=== PATIENT | female | born 1990 | race Caucasian/White ===

== ENCOUNTER 2021-09-28 18:17 | Inpatient (IN) ==
[2021-09-28] MEDS ORDERED: LACTATED RINGER'S 1,000 ML IV PRN ×2 (18:56→22:27)
--- NOTE | 2021-09-28 18:59 | History & Physical Report ---
Date of Service September 28, 2021 Assessment & Plan (1) Spotting affecting in third trimester: Plan: 30 yo at 37.6 wks with post coitla ctxs, spotting VSS Afebrile Uterine ctxs, pt does not feel them all GBS negative FHR categ I Plan to monitor, observe, IVF, Labs, recheck her cervix All questions were answered. (2) Postcoital and contact bleeding: (3) Uterine contractions at greater than 20 weeks of gestation: History of Present Illness Primary Care Provider: Hawa Tucker MD 30 yo at 37.6 wks who had SI at 11: 30 am this morning and has 1 time small leaking at around 1 pm It stopped She then started to feel crampy and saw pink spotting since 3 pm No pain with cramps Does not think she has ctxs +FM Problems: 1: GDM A1 2. GBS+ 3> COVID on 03/2021 4. Depression Patient History Social History Smoking Status: Never smoker Hx Alcohol Use: No Hx Substance Use: No Preferred Language: Hebrew Communication Ability: Effective Clerk Secretary Required: No Beliefs That Will Affect Care: None marital status: Current Living Situation: Spouse Other Information That Helps Us Care for You: No Feels Safe at Home: Yes Safety Concerns: Feels Safe At This Time STAFFING DIRECTOR History No h/o STD Physical Exam Constitutional: WD/WN, vitals as above well developed and well nourished Smiling, NAD Genitourinary: normal external appearance Speculum/Bimanual Exam: normal appearance of the vagina (MUCUS+, no poolimg, no blood) OB Exam Abdomen: + vertex Manual OB Exam: + cervical dilation 3 cm and 4 cm, + cervical effacement 50% and + station high (ballotable) OB Exam Monitor Tracing: + external uterine monitor used and + category I Bed side US: Vertex, SEB 17.5 cm, placenta fundal posterior, normal No ferning on slide Results & Data ([facility]) Vital Signs (Past 12 Hours) Vital Signs Pulse BP Pulse Ox 09/28/21 18:36 75 119/79 09/28/21 18:33 65 96
[2021-09-28] MEDS ORDERED: PENICILLIN G POTASSIUM 6 MU in DEXTROSE 5% 250 ML IV ONE (19:14)
[2021-09-28] MEDS ORDERED: LACTATED RINGER'S 1,000 ML IV SCH (19:15)
[2021-09-28 19:21] LABS: Basophils # (auto) 0.02 K/uL (0-0.2); Basophils % (auto) 0.1 %; Eosinophils # (auto) 0.08 K/uL (0-0.50); Eosinophils % (auto) 0.5 %; Hematocrit (blood only) 37.4 % (34.1-44.9); Hemoglobin 13.3 g/dl (12.0-16.0); Immature Granulocytes # (auto) 0.15 K/uL (0.00-0.02); Lymphocytes % (auto) 17.8 %; Mean Corpuscular Hgb Conc 35.6 g/dL (32.0-36.0); Mean Corpuscular Volume 87.2 fL (80.0-100.0); Mean Platelet Volume 11.5 fL (9.4-12.3); Monocytes # (auto) 0.93 K/uL (0.24-0.82); Monocytes % (auto) 5.9 %; Neutrophils # (auto) 11.74 K/uL (1.4-6.5); Neutrophils % (auto) 74.7 %; Platelet Count 156 K/uL (130-400); RDW Coefficient of Variation 12.7 % (11.5-14.5); Red Blood Count 4.29 M/uL (3.93-5.22); White Blood Count 15.72 K/ul (4.8-10.8)
[2021-09-28] MEDS ORDERED: TERBUTALINE SULFATE 1 MG/ML VIAL SQ PRN (19:23)
[2021-09-28] MEDS: ACETAMINOPHEN 325 MG TAB PO PRN (21:54)
[2021-09-28] MEDS ORDERED: OXYTOCIN 30 UNITS/500 ML BAG IV PRN (22:27)
[2021-09-28] MEDS ORDERED: PENICILLIN G POTASSIUM 3 MU in DEXTROSE 5% 100 ML IV PRN (22:30)
--- NOTE | 2021-09-28 22:30 | Obstetrical Progress Note ---
Date of Service September 28, 2021 Subjective Patient started to have more pain and feels ctxs now No LOF/VB +FM's She is asking for epidural VE; 5-6 cm/ 70%/ -2, bulging bag Recevied 1st dose of PCN, IVF bolus for 2 lt LT Plan to admit, monitor, call anesthesia for epidural All questions were answered. Results & Data ([facility]) Vital Signs (Past 12 Hours) Vital Signs Temp Pulse Resp BP Pulse Ox 09/28/21 18:59 18 09/28/21 18:36 36.9 C 75 20 119/79 09/28/21 18:33 65 96
[2021-09-28] MEDS ORDERED: SODIUM CHLORIDE 0.9% INJ 10 ML VIAL ONE (22:34)
[2021-09-28] MEDS ORDERED: BUPIVACAINE 0.25% 30 ML VIAL ONE (22:34)
[2021-09-28] MEDS ORDERED: LIDOCAINE 2%/EPINEPHRINE 1:200,000 20 ML SDV ONE (22:34)
[2021-09-28] MEDS ORDERED: ePHEDrine sulfate 50 MG/ML AMP ONE (22:34)
[2021-09-28] MEDS ORDERED: fentaNYL citrate 100 MCG/2 ML VIAL ONE (22:34)
[2021-09-28] MEDS ORDERED: fentaNYL 2MCG/ML ROPIVACAINE 1.25MG/ML 100 ML BAG EPI ONE (22:35)
[2021-09-28] MEDS ORDERED: fentaNYL 2MCG/ML ROPIVACAINE 1.25MG/ML 100 ML BAG EPI PRN (22:58)
[2021-09-28] MEDS ORDERED: NALOXONE HCL 0.4 MG/1 ML VIAL/CARP IV PRN (22:58)
[2021-09-28] MEDS ORDERED: NALOXONE HCL 1 MG in SODIUM CHLORIDE 0.9% 1000ML 1,000 ML IV PRN (22:58)
[2021-09-28] MEDS ORDERED: ePHEDrine sulfate 50 MG/ML AMP IV PRN (22:58)
[2021-09-28] MEDS ORDERED: NALBUPHINE HCL INJ 10 MG/ML AMP IV PRN (22:58)
[2021-09-28] MEDS ORDERED: diphenhydrAMINE 50 MG/ML VIAL IV PRN (22:58)
[2021-09-28] MEDS ORDERED: ONDANSETRON INJ 2 MG/ML 2 ML VIAL IV PRN (22:58)
--- NOTE | 2021-09-28 22:59 | Anesthesiology Consultation ---
Date of Service September 28, 2021 Assessment & Plan Chart Review Chart Review: Patient NOT seen in Pre Admission Testing and Acceptable Risk for Labor Epidural Consults Requested none ASA ASA2 Proposed Anesthesia Anesthesia Type: Labor Epidural and CSE Risk / Benefits Reviewed With: PT / POA / Parent / Guardian, Accepts Plan and Informed Consent Obtained History Height/Weight Height: 5 ft 4 in Weight: 66.224 kg Allergies Allergy/AdvReac Type Severity Reaction Status Date / Time No Known Allergies Allergy Unverified 09/28/21 22:58 Medications Active Medications Generic Name Dose Route Start Last Admin Trade Name Freq PRN Reason Stop Dose Admin Acetaminophen 650 mg 09/28/21 18:56 09/28/21 21:54 Acetaminophen 325 Mg Tab PO 10/28/21 18:55 650 mg Q4H PRN Administration Pain or Fever Lactated Ringer's 1,000 mls @ 999 mls/hr 09/28/21 18:56 09/28/21 19:56 Lr IV 10/28/21 18:55 0 mls/hr .Q1H1M PRN Infusion L&D Protocol Protocol Lactated Ringer's 1,000 mls @ 500 mls/hr 09/28/21 19:15 09/28/21 21:16 Lr IV 10/28/21 19:14 500 mls/hr .Q2H CATHY Administration NPO Date Last Intake of Fluids: 09/28/21 Time Last Intake of Fluids: 22:00 Date Last Intake of Solids: 09/28/21 Time Last Intake of Solids: 14:00 Exercise / Class Metabolic Activity II 4-5 Yardwork/Stairs/Walk up hill Past Anesthesia History No Hx of Anesthesia Complications and No Family Hx of Anesthesia Complications History of PONV No Hx of PONV and No Hx of Motion Sickness Social History Smoking Status: Never smoker Hx Alcohol Use: No Hx Substance Use: No Review of Systems no chest pain or sob Physical Exam Vital Signs Last Vital Signs Temp 36.3 C L 09/28/21 22:39 Pulse 59 L 09/28/21 22:56 Resp 18 09/28/21 22:39 BP 119/79 09/28/21 18:36 Pulse Ox 91 09/28/21 22:56 ENMT Mouth: no TMJ abnormality Thyromental Distance: > or= 3.5 Finger Breadths Mallampati Class: II Neck normal visual inspection Respiratory normal respiratory effort Auscultation: lungs clear to auscultation bilaterally Cardiovascular Rate/Rhythm: regular rate and regular rhythm Musculoskeletal Spine: normal cervical ROM Neurologic moves all extremities Psychiatric Orientation: alert and oriented x 3 Testing Laboratory Results 09/28/21 19:09
--- NOTE | 2021-09-29 00:35 | Obstetrical Progress Note ---
Date of Service September 29, 2021 Assessment & Plan Admission and Anticipated Discharge Date Admission Date: September 28, 2021 Subjective Patient received epidural and now comfortable, she is very much excited and happ y and can not sleep VSS Afebrile FHR categ I [place] ctxs q 2-3 min Receiving 2nd dose of PNC VE: bloody show on perineum, 10/ 100%, large bulging bag, SROM'ed clear fluids obtained, head at +1 station Emptied bladder by her nurse No feeling of pressure nor pain Labor down on her side Continue to monitor closely Anticipate Results & Data ([facility]) Vital Signs (Past 12 Hours) Vital Signs Temp Pulse Resp BP Pulse Ox 09/28/21 18:59 18 09/29/21 00:31 86 93 09/29/21 00:29 66 96 09/29/21 00:24 94 09/29/21 00:24 67 93 09/29/21 00:19 94 09/29/21 00:19 71 09/29/21 00:20 80 114/78 09/29/21 00:19 64 94 09/29/21 00:14 93 09/29/21 00:14 66 09/29/21 00:14 68 93 09/29/21 00:09 56 L 94 09/29/21 00:08 62 94 09/29/21 00:04 63 116/61 93 09/29/21 00:00 63 94 09/28/21 23:59 61 93 09/28/21 23:54 57 L 94 09/28/21 23:49 71 95 09/28/21 23:50 56 L 115/65 09/28/21 23:47 60 94 09/28/21 23:44 67 96 09/28/21 23:39 64 96 09/28/21 23:35 57 L 124/91 09/28/21 23:34 62 96 09/28/21 23:20 18 09/28/21 23:20 18 09/28/21 23:25 18 09/28/21 23:25 18 09/28/21 23:30 18 09/28/21 23:30 18 09/28/21 23:29 62 95 09/28/21 23:28 68 93 09/28/21 23:24 77 96 09/28/21 23:21 80 93 09/28/21 23:19 94 09/28/21 23:19 66 09/28/21 23:19 76 102/67 09/28/21 23:17 67 103/56 L 09/28/21 23:16 73 94 09/28/21 23:14 66 94 09/28/21 23:15 72 18 112/64 09/28/21 23:13 80 125/59 L 09/28/21 23:09 62 94 09/28/21 23:07 68 92 09/28/21 23:04 66 94 09/28/21 23:01 56 L 92 09/28/21 22:59 59 L 97 09/28/21 22:56 59 L 91 09/28/21 22:54 59 L 92 09/28/21 22:49 62 98 09/28/21 22:50 69 92 09/28/21 22:44 68 94 09/28/21 22:39 36.3 C L 59 L 18 95 09/28/21 22:40 61 93 09/28/21 18:36 36.9 C 75 20 119/79 09/28/21 18:33 65 96
[2021-09-29 00:52] LABS: Alanine Aminotransferase 7 U/L (7-52); Albumin Globulin Ratio 1.1 (0.9-2); Albumin Level 3.3 gm/dl (3.4-5.0); Alkaline Phosphatase 108 U/L (34-104); Anion Gap 10 (3-11); Aspartate Aminotransferase 12 U/L (13-39); BUN Creatinine Ratio 23.9 (10-20); Bilirubin,Total 0.5 mg/dl (0.2-1.0); Blood Urea Nitrogen 11 mg/dl (6-23); Calcium 8.6 mg/dl (8.5-10.1); Carbon Dioxide 21 mmol/L (21-32); Chloride 103 mmol/L (98-107); Creatinine Clr Calc Pharmacy 167.4 ml/min; Est GFR (African American) > 150.0 ml/min; Est GFR (Non-African American) 133.5 ml/min; Globulin 2.9 gm/dl (2.5-4.0); Glucose 96 mg/dl (70-99(Fasting)); Potassium 3.2 mmol/L (3.5-5.1); Sodium 134 mmol/L (136-145); Total Protein 6.2 gm/dl (6.0-8.3)
[2021-09-29] MEDS ORDERED: MINERAL OIL 30 ML UDC ONE (01:48)
[2021-09-29] MEDS ORDERED: METHYLERGONOVINE MALEATE 0.2 MG/ML AMP ONE (01:50)
[2021-09-29] MEDS ORDERED: LIDOCAINE 1% LOCAL 20 ML VIAL ONE (02:12)
[2021-09-29] MEDS ORDERED: OXYTOCIN 30 UNITS/500 ML BAG IV PRN (02:47)
[2021-09-29] MEDS ORDERED: oxyCODONE/ACETAMINOPHEN 5mg/325mg TAB PO PRN (02:47)
[2021-09-29] MEDS ORDERED: MEASLES, MUMPS & RUBELLA VIRUS VIAL SQ ONE (02:47)
[2021-09-29] MEDS ORDERED: ACETAMINOPHEN 325 MG TAB PO PRN (02:47)
[2021-09-29] MEDS ORDERED: DIPHTHERIA/TETANUS/PERTUSSIS 0.5 ML SYR/VIAL IM ONE (02:47)
[2021-09-29] MEDS ORDERED: HYDROCORTISONE ACETATE 25 MG SUPP PR PRN (02:47)
--- NOTE | 2021-09-29 04:43 | Anesthesia Procedure Note ---
Date of Service September 29, 2021 Anesthesia Post Epidural Note Vital Signs Vital Signs: Temp Pulse Resp BP Pulse Ox 36.6 C 88 18 118/57 L 88 L 09/29/21 00:26 09/29/21 04:42 09/29/21 04:15 09/29/21 04:42 09/29/21 02:24 Notes Mental Status: alert / awake / arousable and participated in evaluation Nausea / Vomiting: adequately controlled Pain: adequately controlled Airway Patency, RR, SpO2: stable & adequate BP & HR: stable & adequate Hydration State: stable & adequate Neuraxial Anesthesia: was administered and sensory block is resolving Anesthetic Complications: no major complications apparent and Pt Satisfied with anesthetic care Epidural: Removed without complications and With tip intact
[2021-09-29] MEDS: BENZOCAINE 20% AER SPR 82.5 GM CAN EXT PRN (05:58)
[2021-09-29] MEDS: DOCUSATE SODIUM 100 MG CAP PO SCH ×2 (08:31→20:13)
[2021-09-29] MEDS: FERROUS SULFATE 325 MG TAB PO SCH (08:31)
[2021-09-29] MEDS: SERTRALINE HCL 50 MG TABLET PO SCH (08:31)
[2021-09-29] MEDS: PRENATAL VITAMIN 1 TAB PO SCH (08:31)
[2021-09-29] MEDS ORDERED: NON-FORMULARY MEDICATION (Prenatal Vit-Ferrous Sulfat-Fa 27 mg iron- 0.8 mg Tablet) PO SCH (09:00)
--- NOTE | 2021-09-29 10:35 | Delivery Summary ---
DATE OF DELIVERY: 09/28/2021. TIME: 01:59 a.m. DETAILS OF DELIVERY: The patient was found to be fully dilated and desired to push. She pushed for about 20 minutes and delivered head without difficulty. There was a nuchal cord around the neck x1, which was reduced. Shoulders were delivered with minimal traction. Baby was handed off to the mother's where mouth and nose were suctioned and the cord was clamped x2 and cut at 1 minute delay. Baby was vigorously moving and crying at that point. Vagina and perineum were checked for lacerations. The peritoneum was intact, but there were bilateral labial laceration starting from upper labia going down all the way into the lower third of vagina bilaterally. They were first-degree. Both were repaired with 3-0 Vicryl in a running locked fashion bringing the labial tissue anatomically together and the vaginal mucosa together. Excellent hemostasis was achieved. Rest of the vagina and perineum were intact and the placenta was found to be in the vagina, delivered spontaneous as intact and complete. Uterus was explored and found to be empty. Lower segment was cleared of all clots and debris. Fundus was firm. EBL was 150 mL. Mom and baby tolerated the procedure well. Sponge, lap, and needle count was correct x2. Baby was a viable male , Apgars 8/9, weight is 2800 gr. No complications happened. I was present during whole procedure. Job ID: [id number] MTDD
[2021-09-29] MEDS: IBUPROFEN 600 MG TAB PO PRN ×2 (11:01→19:10)
[2021-09-30] MEDS: BENZOCAINE 20% AER SPR 82.5 GM CAN EXT PRN (00:15)
[2021-09-30] MEDS: IBUPROFEN 600 MG TAB PO PRN (06:02)
[2021-09-30 07:47] LABS: Hematocrit (blood only) 33.3 % (34.1-44.9); Hemoglobin 11.6 g/dl (12.0-16.0); Mean Corpuscular Hemoglobin 31.3 pg (25.0-34.0); Mean Corpuscular Hgb Conc 34.8 g/dL (32.0-36.0); Mean Corpuscular Volume 89.8 fL (80.0-100.0); Mean Platelet Volume 11.8 fL (9.4-12.3); Platelet Count 138 K/uL (130-400); RDW Coefficient of Variation 12.9 % (11.5-14.5); RDW Standard Deviation 42.1 fL (36.4-46.3); Red Blood Count 3.71 M/uL (3.93-5.22); White Blood Count 12.32 K/ul (4.8-10.8)
[2021-09-30] MEDS: FERROUS SULFATE 325 MG TAB PO SCH (09:05)
[2021-09-30] MEDS: SERTRALINE HCL 50 MG TABLET PO SCH (09:05)
[2021-09-30] MEDS: DOCUSATE SODIUM 100 MG CAP PO SCH (09:05)
[2021-09-30] MEDS: PRENATAL VITAMIN 1 TAB PO SCH (09:05)
[2021-09-30] MEDS: ACETAMINOPHEN 325 MG TAB PO PRN (09:06)
--- NOTE | 2021-09-30 11:06 | Obstetrical Progress Note ---
Date of Service September 30, 2021 Subjective Ambulation: ambulating normally Voiding: no voiding problems Passing Gas:: Yes Diet Tolerance:: regular diet Lochia:: Small Feeding Type:: breast feeding Current Pain Level(1-10): 0 doing well Physical Exam Constitutional WD/WN, vitals as above Gastrointestinal (Abdomen) normal bowel sounds, soft, nontender, no hepatosplenomegaly fundus firm Skin no rashes, warm and dry Neurologic patellar DTR's 2+ bilat, sensation intact Results & Data ([facility]) Vital Signs (Past 12 Hours) Vital Signs Temp Pulse Resp BP Pulse Ox O2 Del Method 09/30/21 07:20 36.5 C 57 L 18 111/70 97 Room Air 09/29/21 23:40 36.6 C 60 18 116/70 Laboratory Results 09/28/21 09/28/21 09/29/21 19:09 22:30 00:08 WBC 15.72 H RBC 4.29 Hgb 13.3 Hct 37.4 MCV 87.2 MCH 31.0 MCHC 35.6 RDW Std Deviation 40.0 RDW Coeff of Alexus 12.7 Plt Count 156 MPV 11.5 Immature Gran % (Auto) 1.0 Neut % (Auto) 74.7 Lymph % (Auto) 17.8 Anderson % (Auto) 5.9 Eos % (Auto) 0.5 Baso % (Auto) 0.1 Neut # (Auto) 11.74 H Lymph # (Auto) 2.80 Anderson # (Auto) 0.93 H Eos # (Auto) 0.08 Baso # (Auto) 0.02 Immature Gran # (Auto) 0.15 H Sodium 134 L Potassium 3.2 L Chloride 103 Carbon Dioxide 21 Anion Gap 10 BUN 11 Creatinine 0.46 L Est Cr Clr Drug Dosing 167.4 Est GFR ( Amer) > 150.0 Est GFR (Non-Af Amer) 133.5 BUN/Creatinine Ratio 23.9 H Glucose 96 Calcium 8.6 Total Bilirubin 0.5 AST 12 L ALT 7 Alkaline Phosphatase 108 H Total Protein 6.2 Albumin 3.3 L Globulin 2.9 Albumin/Globulin Ratio 1.1 SARS-CoV-2, RNA, NAAT NEGATIVE 09/30/21 06:01 WBC 12.32 H RBC 3.71 L Hgb 11.6 L Hct 33.3 L MCV 89.8 MCH 31.3 MCHC 34.8 RDW Std Deviation 42.1 RDW Coeff of Alexus 12.9 Plt Count 138 MPV 11.8 Immature Gran % (Auto) Neut % (Auto) Lymph % (Auto) Anderson % (Auto) Eos % (Auto) Baso % (Auto) Neut # (Auto) Lymph # (Auto) Anderson # (Auto) Eos # (Auto) Baso # (Auto) Immature Gran # (Auto) Sodium Potassium Chloride Carbon Dioxide Anion Gap BUN Creatinine Est Cr Clr Drug Dosing Est GFR ( Amer) Est GFR (Non-Af Amer) BUN/Creatinine Ratio Glucose Calcium Total Bilirubin AST ALT Alkaline Phosphatase Total Protein Albumin Globulin Albumin/Globulin Ratio SARS-CoV-2, RNA, NAAT
[2021-09-30] MEDS ORDERED: bisacodyL 5 MG TABEC PO SCH (20:00)
[2021-10-01] MEDS ORDERED: bisacodyL 10 MG SUPP PR PRN
== END 2021-09-30 13:50 | disposition home or self-care (01) | DRG 807 ==
LOC: OPB 18:17 → 4S1 18:20 → 4E2 09-29 06:09

== ENCOUNTER 2024-11-21 00:20 | Inpatient (IN) ==
[2024-11-21] MEDS ORDERED: OXYTOCIN 30 UNITS/NSS 30 UNITS/500 ML BAG IV PRN (00:25)
[2024-11-21] MEDS ORDERED: PENICILLIN GK 6 MU in DEXTROSE 5% 250 ML IV STA (00:25)
[2024-11-21] MEDS ORDERED: LIDOCAINE 1% LOCAL 20 ML VIAL INFIL PRN (00:25)
[2024-11-21] MEDS ORDERED: LACTATED RINGER'S 1,000 ML IV PRN (00:25)
[2024-11-21] MEDS: OXYTOCIN 10 UNITS/ML 10ML VIAL IM ONE (00:36)
--- NOTE | 2024-11-21 00:43 | Delivery Summary ---
Vaginal Delivery Summary Date of Service November 21, 2024 Vaginal Delivery Summary and 1st Degree LAC Spontaneous vaginal delivery at term the patient had been seen by our practice GBS positive gestational diabetes diet-controlled. On arrival she was in anterior lip her membranes ruptured and she rapidly progressed to fully dilated she pushed over 1 contraction delivering a baby in occiput anterior position fluid was clear there was no nuchal cord once delivery of the head was done gentle traction on the baby no excessive force used combined with maternal expulsive efforts baby was delivered without difficulty live vigorous female infant Cord clamped and cut. Cord blood obtained placenta removed with traction small first-degree tear repaired with 3-0 Vicryl simple [id number] sponge and instrument counts correct QBL 100 mL MNPG Vaginal Delivery Charge Delivery Type Details: and 1st Degree LAC
[2024-11-21] MEDS ORDERED: HYDROCORTISONE ACETATE 25 MG SUPP PR PRN (01:04)
[2024-11-21] MEDS ORDERED: ACETAMINOPHEN 325 MG TAB PO PRN (01:04)
[2024-11-21] MEDS: LIDOCAINE 2% LOCAL 20 ML VIAL ONE (01:20)
[2024-11-21] MEDS: LIDOCAINE 1% LOCAL 20 ML VIAL ONE (01:20)
[2024-11-21] MEDS: DIPHTHER/TETAN/PERTUS Vaccine (Tdap, Adol/Adult) 0.5mL IM ONE (01:54)
[2024-11-21] MEDS: OXYTOCIN 10 UNITS/ML VIAL ONE (02:20)
[2024-11-21 02:22] LABS: Hematocrit (blood only) 36.9 % (37.0-47.0); Hemoglobin 12.9 g/dl (12.0-16.0); Immature Granulocytes # (auto) 0.09 K/uL (0.01-0.20); Immature Granulocytes % (auto) 0.6 %; Mean Corpuscular Hemoglobin 30.4 pg (25.0-34.0); Mean Corpuscular Volume 86.8 fL (80.0-100.0); Platelet Count 167 K/uL (130-400); RDW Standard Deviation 39.7 fL (36.4-46.3); Red Blood Count 4.25 M/uL (4.20-5.40); White Blood Count 14.83 K/ul (4.8-10.8)
[2024-11-21] MEDS: BENZOCAINE 20% SPRY 85 APPLN/85 GM CAN EXT PRN (02:46)
--- NOTE | 2024-11-21 08:10 | Obstetrical Progress Note ---
Date of Service <Emely Walden MD - Last Filed: 11/21/24 08:10> November 21, 2024 Assessment & Plan <Emely Walden MD - Last Filed: 11/21/24 08:10> (1) care following vaginal delivery: Plan -Continue stable and routine care. Breast feeding. Rhesus Positive. Rubella Immune. Monitor. <Venice Ramírez MD, FACOG - Last Filed: 11/22/24 08:33> (1) care following vaginal delivery: Subjective <Emely Walden MD - Last Filed: 11/21/24 08:10> Ambulation: ambulating normally Voiding: no voiding problems Diet Tolerance:: regular diet Lochia:: Small Feeding Type:: breast feeding Current Pain Level(1-10): 0 PPD1. At bedside, pt resting comfortably. Review of Systems All systems reviewed & are unremarkable except as noted in HPI & below i. Denies fever, chills, sweats ii. Denies SOB, difficulty breathing, chest pain, palpitations, chest pressure iii. Denies breast pain. iv. Denies Dysuria v. Denies headache or changes in vision. Physical Exam <Emely Walden MD - Last Filed: 11/21/24 08:10> Constitutional WD/WN, vitals as above Respiratory normal respiratory effort, lungs clear to auscultation Cardiovascular RRR, no murmur, no edema Gastrointestinal (Abdomen) normal bowel sounds, soft, nontender, no hepatosplenomegaly On palpation of abdomen, fundus is at the level of the umbilicus. uterus is firm and has begun involution, at approximately 1cm/day. Skin no rashes, warm and dry Psychiatric A+Ox3, euthymic affect Results & Data <Emely Walden MD - Last Filed: 11/21/24 08:10> Vital Signs (Past 12 Hours) Vital Signs Temp Pulse Pulse Resp BP BP Pulse Ox 11/21/24 03:00 36.7 C 60 18 99/61 L 96 11/21/24 02:46 60 99/61 L 11/21/24 02:40 36.7 C 18 11/21/24 02:40 64 100/65 11/21/24 02:25 61 103/69 09/09/25 02:10 18 11/21/24 02:10 71 107/60 11/21/24 01:55 55 L 99/60 L 11/21/24 01:40 18 11/21/24 01:40 59 L 99/68 L 11/21/24 01:25 18 11/21/24 01:25 57 L 102/71 11/21/24 01:10 18 11/21/24 01:10 66 105/71 11/21/24 00:57 84 123/64 11/21/24 00:55 18 11/21/24 00:50 36.5 C 20 11/21/24 00:40 18 11/21/24 00:40 71 108/60 O2 Del Method 11/21/24 03:00 Room Air 11/21/24 02:46 11/21/24 02:40 11/21/24 02:40 11/21/24 02:25 11/21/24 02:10 11/21/24 02:10 11/21/24 01:55 11/21/24 01:40 11/21/24 01:40 11/21/24 01:25 11/21/24 01:25 11/21/24 01:10 11/21/24 01:10 11/21/24 00:57 11/21/24 00:55 11/21/24 00:50 Room Air 11/21/24 00:40 11/21/24 00:40 Supervising Physician <Venice Ramírez MD, FACOG - Last Filed: 11/22/24 08:33> Co-Signing Physician Notes Resident Physician Supervision Note: I was present with [Name of resident] during the history and exam. I discussed the case with the resident and agree with the findings and plan as documented in the note. Any exceptions or clarifications are listed here: [None] Documented By: Venice Ramírez MD, FACOG
[2024-11-21] MEDS: DOCUSATE SODIUM 100 MG CAP PO SCH (09:41)
[2024-11-21] MEDS: PRENATAL VITAMIN 1 TAB PO SCH (09:41)
[2024-11-21] MEDS: IBUPROFEN 600 MG TAB PO PRN (18:01)
[2024-11-21] MEDS: SERTRALINE HCL 50 MG TABLET PO SCH (21:16)
[2024-11-22 06:24] LABS: Hematocrit (blood only) 34.9 % (37.0-47.0); Hemoglobin 12.1 g/dl (12.0-16.0); Mean Corpuscular Hemoglobin 30.3 pg (25.0-34.0); Mean Corpuscular Volume 87.3 fL (80.0-100.0); Platelet Count 144 K/uL (130-400); RDW Standard Deviation 39.9 fL (36.4-46.3); Red Blood Count 4.00 M/uL (4.20-5.40); White Blood Count 13.69 K/ul (4.8-10.8)
--- NOTE | 2024-11-22 07:36 | Obstetrical Progress Note ---
Date of Service <Emely Walden MD - Last Filed: 11/22/24 07:38> November 22, 2024 Assessment & Plan <Emely Walden MD - Last Filed: 11/22/24 07:38> (1) care following vaginal delivery: Plan -Continue stable and routine care. Breast feeding. Rhesus Positive. Rubella Immune. Monitor. <Mana Tucker MD, FACOG - Last Filed: 11/22/24 08:28> (1) care following vaginal delivery: Subjective <Emely Walden MD - Last Filed: 11/22/24 07:38> Ambulation: ambulating normally Voiding: no voiding problems Passing Gas:: Yes Diet Tolerance:: regular diet Lochia:: Small Feeding Type:: breast feeding Current Pain Level(1-10): 0 PPD 2. At bedside, pt resting comfortably at bedside. Review of Systems All systems reviewed & are unremarkable except as noted in HPI & below i. Denies fever, chills, sweats ii. Denies SOB, difficulty breathing, chest pain, palpitations, chest pressure iii. Denies breast pain. iv. Denies Dysuria v. Denies headache or changes in vision. Physical Exam <Emely Walden MD - Last Filed: 11/22/24 07:38> Constitutional WD/WN, vitals as above Respiratory normal respiratory effort, lungs clear to auscultation Cardiovascular RRR, no murmur, no edema Gastrointestinal (Abdomen) normal bowel sounds, soft, nontender, no hepatosplenomegaly On palpation of abdomen, fundus is at the level of the umbilicus and decreasing in height. Uterus is firm and has continued involution, at approximately 1cm/day. Skin no rashes, warm and dry Psychiatric A+Ox3, euthymic affect Results & Data <Emely Walden MD - Last Filed: 11/22/24 07:38> Vital Signs (Past 12 Hours) Vital Signs Temp Pulse Resp BP Pulse Ox O2 Del Method 11/22/24 00:15 36.8 C 59 L 14 120/72 96 Room Air Supervising Physician <Mana Tucker MD, FACOG - Last Filed: 11/22/24 08:28> Co-Signing Physician Notes Resident Physician Supervision Note: I was present with Dr. Walden during the history and exam. I discussed the case with the resident and agree with the findings and plan as documented in the note. Any exceptions or clarifications are listed here: stable eating, voiding, ambulating. baby is well, . ready to go home. cor rrr, lungs ctab, abd soft ff2 down nt, ext nt calves. ppd#2 s/p d/c home, instructions reviewed. f/u 6 wk pp check. breast, rhpos, ri. Documented By: Mana Tucker MD, FACOG Resident Activity Tracking <Emely Walden MD - Last Filed: 11/22/24 07:38> Resident Involvement: Resident Care Provided Care Provided: OB Delivery
[2024-11-22 08:32] VITALS: BP 105/67; RESP 16; TEMP 97.9; O2SAT 97
[2024-11-22 09:03] VITALS: PULSE 60
== END 2024-11-22 10:45 | disposition home or self-care (01) | DRG 768 ==
LOC: OPB 00:20 → 4S1 00:23 → 4E2 03:03